=== PATIENT | female | born 1950 | race Caucasian/White ===

== ENCOUNTER 2019-01-26 05:47 | Inpatient (IN) | payer MEDICARE, BC ==
--- NOTE | 2019-01-26 06:35 | EDM.PDOC ---
ED HPI GENERAL MEDICAL PROBLEM - General Chief Complaint: General Stated Complaint: weakness, assisted fall Time Seen by Provider: 01/26/19 06:33 Source of Information: Reports: Patient, EMS Notes Reviewed, Family, RN, RN Notes Reviewed History Limitations: Reports: No Limitations - History of Present Illness INITIAL COMMENTS - FREE TEXT/NARRATIVE: Patient is brought to the emergency room at [facility] via EMS for increasing weakness, fatigue, fall at home, and right leg numbness. According to the patient's family, she was being assisted to the restroom when she fell landing on her right leg. The patient's was unable to get the patient off the floor, therefore EMS was called. The patient complains of right foot and ankle pain. The patient denies hitting her head. The patient denies any loss of consciousness. The patient denies any other pain. The patient does have chronic abdominal pain secondary to ascites. The patient has a long-standing history of end-stage endometrial cancer. The patient does have metastasized to the liver. The patient currently has a MANUEL drain in place for malignant ascites. The patient was originally diagnosed with endometrial cancer October 2013 at which time she underwent a abdominal hysterectomy with a BSO. She was found to have grade 2 endometrial adenocarcinoma with myometrium involvement. April 2016 the patient was found to have a significant DVT including common femoral vein and popliteal vein and parent Tibial vein. The patient was started on Pradaxa. On April 27, [address] the patient [address] a CT scan of the abdomen and pelvis which showed extensive peritoneal implants. The patient had 6 cycles of chemotherapy of carboplatin and Taxol. the patient was started on Megace and Tamoxifen. May 2017, the patient was found to have significant progressive disease and CT and PET. HRT was stopped and patient was restarted on carboplatin, Taxol, and Avastin. She seemed to have some resolution of her lesions at this point. Repeat CT and PET again showed progression and patient was then started on Doxil. She was enrolled in a clinical TAPUR trial 10/2018, but due to progression of disease, patient was withdrawn. 01/08/2019 patient was then started on Topotecan. states the MANUEL drained has increased to about 600-1000 ml per day. He states the drainage seems to be "more bloody looking." Patient recently has a blood transfusion last week for a hemoglobin of 6.6. Repeat HgB the next day was 7.3. Patient has a dry cough. Mild SOB. No chest pain. No focal neurological deficits. Abdominal pain is generalized with some focus around the MANUEL insertion site. Onset: Today Onset Date: 01/26/19 Right Feet Pain Score (Numeric/FACES): 9 - Related Data Allergies Allergy/AdvReac Type Severity Reaction Status Date / Time Sulfa (Sulfonamide Allergy Facial Verified 01/26/19 05:53 Antibiotics) Swelling Home Meds: Home Meds Dabigatran [Pradaxa] 150 mg PO BID 01/26/19 [History] Levothyroxine [Synthroid] 100 mcg PO ACBREAKFAST 01/26/19 [History] Lisinopril 0.5 tab PO DAILY 01/26/19 [History] Omeprazole 1 tab PO DAILY 01/26/19 [History] Ondansetron [Zofran ODT] 4 mg PO Q4H PRN 01/26/19 [History] Sennosides/Docusate Sodium [Senna Plus Tablet] 2 tab PO BID 01/26/19 [History] Past Medical History Cardiovascular History: Reports: High Cholesterol Gastrointestinal History: Reports: Chronic Constipation, GERD Oncologic (Cancer) History: Reports: Liver, Uterine Social & Family History - Tobacco Use Smoking Status *Q: Never Smoker ED ROS GENERAL - Review of Systems Review Of Systems: See Below Constitutional: Reports: Weakness, Fatigue. Denies: Fever, Chills Respiratory: Reports: Shortness of Breath, Cough Cardiovascular: Denies: Chest Pain, Palpitations GI/Abdominal: Reports: Abdominal Pain (chronic 2/2 mets to liver) Musculoskeletal: Reports: Foot Pain (right 2/2 fall) Skin: Reports: No Symptoms Neurological: Reports: No Symptoms ED EXAM, GENERAL - Physical Exam Exam: See Below Exam Limited By: No Limitations General Appearance: Alert, No Apparent Distress Respiratory/Chest: No Respiratory Distress, Lungs Clear, Normal Breath Sounds Cardiovascular: Normal Peripheral Pulses, Tachycardia Peripheral Pulses: 1+: Radial (L), Radial (R) GI/Abdominal: Soft, Tender (generalized), Abnormal Bowel Sounds (hypoactive) Extremities: Other (medial right foot pain; dorsum pain; chronically swollen; ROM intact; no obvious bone deformity) Neurological: Alert, Oriented Skin Exam: Warm, Dry, Intact, Normal Color Course - Vital Signs Last Recorded V/S: Last Vital Signs Temp 37.9 C 01/26/19 06:00 Pulse 109 H 01/26/19 06:00 Resp 26 H 01/26/19 06:00 BP 97/51 L 01/26/19 06:00 Pulse Ox 87 L 01/26/19 06:00 - Orders/Labs/Meds Labs: Laboratory Tests 01/26/19 01/26/19 01/26/19 Range/Units 07:30 07:30 07:30 WBC 40.7 H* (4.0-10.0) x10^3/uL RBC 2.52 L (4.00-5.50) x10^6/uL Hgb 7.5 L (12.0-16.0) g/dL Hct 24.9 L (33.0-47.0) % MCV 98.8 H D (78.0-93.0) fL MCH 29.8 (26.0-32.0) pg MCHC 30.1 L (32.0-36.0) g/dL RDW Coeff of Hiral 17.9 H (10.0-15.0) % Plt Count 311 D (130-400) x10^3/uL Add Manual Diff Yes Neutrophils % (Manual) 87 H (50-80) % Band Neutrophils % 4 (0-6) % Lymphocytes % (Manual) 8 L (25-50) % Monocytes % (Manual) 1 L (2-11) % Platelet Estimate Adequate Polychromasia 1+ slight H Hypochromasia 2+ moderate H Sodium 136 (136-145) mmol/L Potassium 4.8 (3.5-5.1) mmol/L Chloride 102 (98-107) mmol/L Carbon Dioxide 21 (21-32) mmol/L Anion Gap 17.8 (10-20) mmol/L BUN 33 H (7-18) mg/dL Creatinine 2.4 H (0.55-1.02) mg/dL Est Cr Clr Drug Dosing TNP Estimated GFR (MDRD) 20 Glucose 106 (74-106) mg/dL Calcium 8.3 L (8.5-10.1) mg/dL Magnesium 1.6 L (1.8-2.4) mg/dL Meds: Medications Discontinued Medications Generic Name Dose Route Start Last Admin Trade Name Freq PRN Reason Stop Dose Admin Sodium Chloride 1,000 mls @ 999 mls/hr 01/26/19 06:51 01/26/19 07:28 Normal Saline IV 01/26/19 07:51 999 mls/hr ONETIME ONE Administration Morphine Sulfate 2 mg 01/26/19 07:38 01/26/19 07:46 Morphine IVPUSH 01/26/19 07:39 2 mg ONETIME ONE Administration - Radiology Interpretation Free Text/Narrative:: CXR: No acute process Right Foot: Negative plain film exam See scanned reports in EMR for details Departure - Departure Time of Disposition: 09:16 Disposition: Admitted As Inpatient 64 Condition: Poor Clinical Impression: Endometrial cancer, Dehydration, Acute kidney injury (nontraumatic) - Discharge Information *PRESCRIPTION DRUG MONITORING PROGRAM REVIEWED*: Not Applicable *COPY OF PRESCRIPTION DRUG MONITORING REPORT IN PATIENT JAMES: Not Applicable ED Communication - ED Communication Date/Time Date: 01/26/19 Time Called: 07:50 - Discussed Case With (1) Discussed Case With (1): Outpatient Provider (Dr. Salmon, [facility] [place]) - Conversation Summary Outpatient Provider Agreed to Follow-up on this Patient: Yes Patient Aware of Amendments fo Care Plan: Yes Patient's POA/Guardian Aware of Amendments to Care Plan: Yes - Problem List Review Problem List Initiated/Reviewed/Updated: Yes - Assessment/Plan Assessment:: End stage endometrial cancer Dehydration Acute kidney injury 2/2 dehydration Weakness Plan: Case discussed with Dr. Salmon, [facility] [place]. Options discussed with family. They would like to stay locally if possible. Dr. Liliya Saavedra will accept patient and admit.
[2019-01-26] MEDS ORDERED: Sodium Chloride 0.9% 1,000 ML IV ONE (06:51)
[2019-01-26] MEDS ORDERED: Morphine 2 MG/ML Syringe IVPUSH ONE (07:38)
[2019-01-26 07:50] LABS: CHLORIDE,CL 102 mmol/L (98-107); SODIUM,NA 136 mmol/L (136-145)
[2019-01-26 07:51] LABS: ANION GAP 17.8 mmol/L (10-20)
--- NOTE | 2019-01-26 08:49 | CR ---
[id number] RAD/RAD Chest Portable EXAM: PORTABLE CHEST RADIOGRAPH. INDICATION: COUGH COMPARISON: NO PREVIOUS SIMILAR EXAM IS AVAILABLE FOR COMPARISON. FINDINGS: The lungs are clear. A chest port is seen. The cardiomediastinal contour is slightly prominent. IMPRESSION: NO ACUTE PROCESS. Alex Fields MD 01/26/19 0846 Thank you for allowing us to participate in the care of your patient.
--- NOTE | 2019-01-26 08:50 | CR ---
[id number] RAD/RAD Foot Right 3V Min EXAM: RAD Foot Right 3V Min CLINICAL DATA: TRAUMA COMPARISON: NO PREVIOUS SIMILAR EXAM IS AVAILABLE. FINDINGS: No fracture or dislocation is seen. There is no radiopaque foreign body in the soft tissues. There is no air in the soft tissues. There is no cortical thickening or periosteal reaction either. IMPRESSION: NEGATIVE PLAIN FILM EXAM. Alex Fields MD 01/26/19 0847 Thank you for allowing us to participate in the care of your patient.
[2019-01-26] MEDS ORDERED: cefTRIAXone 1 GM Vial IVPUSH ONE ×2 (09:33→09:46)
[2019-01-26] MEDS: Sodium Chloride 0.9% 1,000 ML IV SCH ×2 (09:44→15:29)
[2019-01-26] MEDS ORDERED: Ondansetron 4 MG/2 ML SDV IVPUSH PRN (09:51)
[2019-01-26] MEDS ORDERED: Ondansetron 4 MG Tab.DIS PO PRN (11:08)
[2019-01-26] MEDS ORDERED: Levothyroxine 100 MCG Tab PO SCH (11:09)
[2019-01-26] MEDS ORDERED: Acetaminophen 325 MG Tab PO PRN (11:09)
[2019-01-26] MEDS: Omeprazole 20 MG Cap.CR PO SCH (11:38)
[2019-01-26] MEDS: Magnesium Oxide 400 MG Tab PO SCH ×2 (11:39→19:38)
[2019-01-26] MEDS: DABIGATRAN 150 MG PO SCH ×2 (11:47→19:41)
--- NOTE | 2019-01-26 13:10 | CR ---
[id number] RAD/RAD Ankle Right 2V EXAM: RAD Ankle Right 2V CLINICAL DATA: RIGHT ANKLE PAIN COMPARISON: NO PREVIOUS SIMILAR EXAM IS AVAILABLE. FINDINGS: Soft tissue swelling is seen. No fracture or dislocation is seen. There is no radiopaque foreign body in the soft tissues. There is no air in the soft tissues. There is no cortical thickening or periosteal reaction either. IMPRESSION: NEGATIVE PLAIN FILM EXAM. Alex Fields MD 01/26/19 0591 Thank you for allowing us to participate in the care of your patient.
[2019-01-26] MEDS ORDERED: Levothyroxine 100 MCG Vial IVPUSH SCH (14:30)
[2019-01-26] MEDS: Levothyroxine 100 MCG Vial IVPUSH SCH (15:28)
[2019-01-26] MEDS ORDERED: Benzonatate 100 MG Cap PO SCH ×2 (18:00→20:00)
--- NOTE | 2019-01-26 18:15 | HP ---
CHIEF COMPLAINT: Weakness and fall. HISTORY OF PRESENT ILLNESS: This is a 68-year-old female who is at home with her . Daughter is visiting from [place]. She has stage IV endometrial cancer, currently trying a new chemotherapy drug the end of December, but was not able to receive it on the due to anemia. She actually received 1 unit of blood then, but it did not seem to improve her energy levels. She did sort of twist her ankle when she fell. Preliminary x-rays of the foot did not show any fracture. Otherwise, she has been coughing more, does feel short of breath. She has malignant ascites and did have a PleurX catheter placed on the 01/02/2019. She has not had a fever, chills, or abdominal pain, but has felt nauseated. They have been draining fluid about 700 yesterday. It has been bloody, Saturday. Before that, they only got like a 150, then a 100, so they waited a week before draining again. She has not had any burning with urination, but has had little urine output. She has history of DVT and is on Pradaxa. Otherwise her past medical history is as followed for her cancer, originally diagnosed in 2013 and treated with surgery, but then had a relapse in 2016. It was found at the time of her DVT. She has been on several rounds of treatment including immunotherapy, but has had progression of her disease. Her last drug was topotecan. They believe she only got Zofran with it. No stimulating agents. She did have a white count of only 2.2 on 01/16/2019. PAST MEDICAL HISTORY: Her other past medical history includes the DVT with pulmonary embolism on Pradaxa, anemia due to cancer and chemotherapy, hyperlipidemia, essential hypertension, hypoalbuminemia with protein-calorie malnutrition, malignant ascites, fatigue related to malignancy, neuropathy due to chemotherapy, obesity, obstructive sleep apnea. PAST SURGICAL HISTORY: Includes the hysterectomy and BSO. Otherwise, she has had tonsillectomy, teeth extraction, IR, Port-A-Cath insertion, PleurX catheter insertion, colonoscopies, cataracts. FAMILY HISTORY: The patient's father had . She had been caring for him during her cancer diagnosis. He had hypertension and a history of [place]. SOCIAL HISTORY: Otherwise, she is . 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 She is from the [place], but moved into [place] a couple of years ago. She has 2 children. REVIEW OF SYSTEMS: General: She has felt weak and fatigued. Her weight has decreased from around 283 pounds in September, about 14 pounds to 269 pounds before this last round of chemo. HEENT: She has not had any sore throat, otherwise. Cardiac: No chest pain. No palpitations. Respiratory: She has had the cough, has not really been bringing up much. Abdomen: She has been nauseated, otherwise. Does get constipated from chemo. Musculoskeletal: Only the new ankle pain from the fall. Otherwise, all systems reviewed and found to be negative unless otherwise stated. PHYSICAL EXAMINATION: Vital Signs: Today, at the time of admission, her temperature 99.2, pulse 98, blood pressure 110/50, respiratory rate 18, O2 of 92% on room air. General: She was in no acute distress. She was resting comfortably in bed. She did get some morphine which she found quite helpful for pain, but it made her nauseated. Heart: Regular rate and rhythm. S1, S2 without murmur. She has a port over her right chest. Abdomen: Distended. There appeared to be some firmness in the mid epigastric area, but it was nontender. She has notable ascites. She has a PleurX catheter in place, otherwise. Lungs: Clear to auscultation bilaterally without crackles or wheezes. Extremities: Warm and dry. She does have tenderness over the medial ankle. No pitting edema, but both extremities are large. Homans sign negative. Mental Status: She is alert. She is orientated x3. She is speaking appropriately. Skin: Her skin tone was mildly pale. DIAGNOSTIC DATA: Otherwise, her chest x-ray did not show any infiltrates. Her foot x-ray negative for fracture. Ankle x-ray, official report not returned, but negative for fracture. She particularly did have pain with inversion, but the bump testing negative. Otherwise, her lab work did show her white count up to 40.7 with 87% neutrophils, hemoglobin 7.5, previously was 6.6, and got 1 unit, platelets up to 311, previously was below 100. Sodium 136, potassium 4.8, chloride 102, bicarb 21, BUN 33, creatinine 2.4, previously 1.0, calcium 8.3, glucose 106, magnesium 1.6, GFR 20. ASSESSMENT: 1. Acute renal failure, probably due to volume depletion, ascites, and potentially progression of cancer. At this point, we will place a Russo for strict Is and Os. She only had 100 mL of dark urine out on Russo placement and we will give her IV fluids. We will also check a UA. 2. Stage IV metastatic endometrial cancer, previously had some metastasis to the liver with malignant ascites, now with PleurX catheter in place. The patient is pretty much at a point where she is considering hospice, but would like to see how she does over the next few days with acute treatments. 3. Right ankle pain. No obvious fracture. We will do Navjot wraps. We will get her seen by Physical Therapy. 4. Anemia due to chemotherapy and malignancy. At this point, anticipate her hemoglobin will drop further due to hemodilution. We will repeat in the morning. She is also having bloody ascites which could be where some of the loss is coming from. Certainly, we may have to consider even stopping Pradaxa. 5. History of deep venous thrombosis and pulmonary embolism in the setting of malignancy. She is currently on Pradaxa. 6. Essential hypertension. Blood pressure is actually low. We will hold lisinopril due to renal failure. 7. Leukocytosis. Concern would be for some underlying infection, especially with some mild tachycardia, although her pulse should be noted runs normally 90 to 105 in the clinic. At this point, I will go ahead and empirically give her some Rocephin, especially due to her ascites, considerations for small bowel perforation, or even secondary bacterial peritonitis are considerations. Currently, she has no abdominal pain. She is not confused. We will go ahead and send some of her fluid for at least a Gram stain and cell count and culture. We will also get her a UA. We will cover her with 2 g of Rocephin daily as we do not have cefoxitin at our hospital. 8. [id number] malnutrition. We will get her albumin tomorrow. We will let her eat as able. Consider adding protein. PLAN: At this point, the patient is admitted to Acute Cares for IV antibiotics, IV fluids as discussed with family. We will further decide if transfusion is warranted tomorrow. If her condition worsens, she will be placed on full out comfort cares. If she improves, the goal would be to go home with hospice. I have updated her oncologist as well and will speak with him when he is available. Code level 5, admitted with advancing malignancy, renal failure, and possible infection. MKA: 01/26/2019 13:00:59 MODL: 01/26/2019 17:27:31 /[id number]
[2019-01-26] MEDS: Sodium Chloride 0.9% 10 ML Syringe IV PRN (19:38)
[2019-01-26] MEDS: HYDROmorphone 1 MG/ML Syringe IVPUSH PRN (20:38)
[2019-01-27] MEDS: Benzonatate 100 MG Cap PO SCH ×4 (00:43→19:41)
[2019-01-27] MEDS: Sodium Chloride 0.9% 10 ML Syringe IV PRN ×6 (04:36→21:53)
[2019-01-27] MEDS: HYDROmorphone 1 MG/ML Syringe IVPUSH PRN ×2 (04:36→21:53)
[2019-01-27] MEDS: Omeprazole 20 MG Cap.CR PO SCH (06:19)
[2019-01-27 06:59] LABS: ANION GAP 14.6 mmol/L (10-20); CHLORIDE,CL 105 mmol/L (98-107); SODIUM,NA 138 mmol/L (136-145)
[2019-01-27] MEDS: cefTRIAXone 2 GM Vial IVPUSH SCH (08:11)
[2019-01-27] MEDS: Magnesium Oxide 400 MG Tab PO SCH ×2 (08:12→19:41)
[2019-01-27] MEDS ORDERED: Furosemide 20 MG/2 ML VIAL IV ONE (09:06)
--- NOTE | 2019-01-27 10:40 | CR ---
[id number] RAD/RAD Chest PA or AP 1V EXAM: RAD Chest PA or AP 1V INDICATION: SHORTNESS OF BREATH. COMPARISON: [facility] 2018. DISCUSSION: Stable position of right chest wall port catheter. Cardiomediastinal silhouette is normal in size and contour. No infiltrate, effusion, pneumothorax, or edema. IMPRESSION: No acute findings or significant change from the prior examination. Prasad Chappell MD 01/27/19 1039 Thank you for allowing us to participate in the care of your patient.
--- NOTE | 2019-01-27 12:08 | PN ---
Progress Note for BRIDGET SALVADOR Date: 01/27/2019 Room #: VM.205 SUBJECTIVE: This is hospital day #2 on a 68-year-old with stage IV endometrial cancer and peritoneal metastasis with ascites, who got weak at home, was found to be very dehydrated, given some IV fluids. She states she is actually feeling better today, but is coughing more and is more short of breath. Cough is now more productive. She did not have any fever on admission, but did have some low- grade 100.3 fever from yesterday. She had 40,000 white count, but no definite source of infection was found. Concern was for ascites infections, so she was placed on 2 g of Rocephin. She has now been afebrile. She is not having any stomach pain. She is not having any nausea. Urine output has been poor despite her Russo. She denies pain, but did receive 2 doses of Dilaudid overnight. She said she used them more to help her relax and sleep and it did allow her to get to sleep. She also refused her Pradaxa last night after we had discussion about it worsening her anemia and bleeding as her ascites fluid is bloody. She did admit she was not taking her levothyroxine for about 2 weeks and her TSH was quite elevated. Daughter and are present for the discussion today. Daughter is going to be traveling home to [place]. OBJECTIVE: VITAL SIGNS: This morning, her temperature 98.4, pulse 97, blood pressure 98/54, respiratory rate 18, and O2 of 93% on 4 L. GENERAL: She is in no acute distress. She is quite pale. HEART: Regular rate and rhythm without murmur appreciated. LUNGS: Lung sounds are decreased in both bases but no crackles appreciated. ABDOMEN: Does have the PleurX catheter in place. There was 300 drained out of this yesterday. There is no tenderness to palpation. Does have some firmness in the mid epigastric area, possibly a little mass that was noted yesterday. No changes. EXTREMITIES: With at least 1+ edema, it is nonpitting. MENTAL STATUS: Alert and orientated x3. IMAGING DATA: Chest x-ray from today was reviewed. No major changes. No infiltrate noted. LABORATORY DATA: Shows white count down to 30.1, hemoglobin 6.3, platelets 275. Sodium 138, potassium 4.6, chloride 105, bicarb 23, BUN 37, creatinine 2.8 up from 2.4, calcium 7.6, AST 48, ALT 15, alkaline phosphatase 171, bilirubin 0.4, albumin 1.8. TSH again 45.8 yesterday. Leukocyte esterase negative yesterday, but 5 to 10 wbc's, so urine was sent for culture. She also had nothing noted on the Gram stain for organisms. Did have greater than 100 wbc's. Cell count is pending. Culture is pending. ASSESSMENT AND PLAN: 1. Acute on chronic anemia due to malignancy. Discussed the risks and benefits of blood transfusion with the patient and she elects to proceed. We will give her 2 units of packed red blood cells today and also provide her with some Lasix due to fluid retention and poor urine output. 2. Leukocytosis. There was some concern for sepsis, however, she did not meet criteria with fever, but was tachycardic, although her baseline heart rate is always above 90. At this point, she will continue on 2 g of Rocephin. Urine culture is pending. Repeat chest x-ray did not show any pneumonia. 3. Cough, probably multiple etiologies given diaphragmatic irritation from her ascites. We will continue with Tesmarcelino Urbina. 4. Stage IV endometrial cancer, metastatic. At this point, we will continue with blood and infection treatments to try to improve her short-term strength and mobility in hopes to return home with hospice. The patient understands if her condition worsens, she will likely stay in the hospital under full comfort measures. 5. Right ankle pain. This is doing better today. No fracture on x-ray. 6. History of deep vein thrombosis and pulmonary embolism. Decision has been made after discussing the risks and benefits to stop Pradaxa. The patient is focusing on short-term comfort and quality of life currently. She is aware that she will likely get another deep vein thrombosis and may lead to another pulmonary embolism over the next week or so. 7. Essential hypertension. Blood pressures have been low. We are still holding lisinopril. 8. Moderate to severe malnutrition. Albumin is down to 1.8. We talked about adding protein powder, however, that is more of a long-term thing. We talked about even IV albumin. Her daughter actually works in dialysis and understands that this is not a fix either. For now, we will just encourage diet and she has been eating. PLAN: At this point, the patient will continue on acute cares. We will transfuse 2 units of packed red blood cells today. We will try some Lasix. We will continue to monitor in's and out's closely. We have kept the Russo in place to do that. We will add some lorazepam to try to help her sleep and rest at night instead of using the pain medication. Otherwise, family does seem comfortable with plan of care. We will try to get her up and into the chair later today after the blood, perhaps PT can help with this. Otherwise, tomorrow will likely be when she gets a PT assessment unless her condition worsens. MKA: 01/27/2019 10:18:34 MODL: 01/27/2019 10:38:35 /[id number]
[2019-01-27] MEDS: Levothyroxine 100 MCG Vial IVPUSH SCH (12:34)
[2019-01-27] MEDS: LORazepam 0.5 MG Tab PO PRN (19:41)
[2019-01-28] MEDS: guaiFENesin/Dextromethorphan 100-10 MG/5 ML Soln 10 ML Cup PO PRN ×3 (03:17→20:48)
[2019-01-28] MEDS: HYDROmorphone 1 MG/ML Syringe IVPUSH PRN ×2 (04:00→21:59)
[2019-01-28] MEDS: Sodium Chloride 0.9% 10 ML Syringe IV PRN ×4 (04:00→21:59)
[2019-01-28] MEDS: Omeprazole 20 MG Cap.CR PO SCH (06:20)
[2019-01-28 07:20] LABS: ANION GAP 13.8 mmol/L (10-20)
[2019-01-28] MEDS: cefTRIAXone 2 GM Vial IVPUSH SCH (08:25)
[2019-01-28] MEDS: Magnesium Oxide 400 MG Tab PO SCH ×2 (08:26→20:45)
[2019-01-28] MEDS: Benzonatate 100 MG Cap PO SCH ×3 (08:26→20:47)
[2019-01-28] MEDS: Sodium Chloride 0.9% 10 ML Syringe IV SCH ×2 (08:27→20:30)
[2019-01-28] MEDS: Sodium Chloride 0.65% Nasal Spray 45 ML Bottle NAS SCH ×4 (09:17→20:59)
[2019-01-28] MEDS: Levothyroxine 100 MCG Vial IVPUSH SCH (09:17)
[2019-01-28] MEDS ORDERED: Furosemide 40 MG/4 ML VIAL IV ONE (13:28)
--- NOTE | 2019-01-28 16:53 | PN ---
Progress Note for BRIDGET SALVADOR Date: 01/28/2019 Room #: VM.205 SUBJECTIVE: This is hospital day #3 on a 68-year-old admitted with leukocytosis, weakness, dehydration, and anemia. The patient received 2 units of packed red blood cells yesterday with some Lasix between them. She states she is feeling better like she has some more energy, but she is still short of breath. She is still coughing, feels like she might have some drainage and phlegm in her throat. She has been afebrile. She denies having pain anywhere. Urine output has still been poor. She is positive 2.5 L fluid balance. She had another 300 out of her ascites drained yesterday. She is eating up to 75% of some meals, 100% of snacks, but still has not had a bowel movement yet. She is passing gas. Otherwise, the son was able to come up from [place]. OBJECTIVE: Vital Signs: Her temperature is 98.8, pulse 88, blood pressure 106/60, respiratory rate 16, O2 of 94% on 3 L. General: She is in no acute distress. Heart: Regular rate and rhythm without murmur. Lungs: Sound clear to auscultation bilaterally without crackles or wheezes. Abdomen: Mild distention with ascites. She has the catheter in place in the right lower quadrant. There is some masslike material in the lower abdomen, which is unchanged. Mental Status: She is alert and orientated x3. Extremities: She is having less tenderness in that right foot and ankle. She still has 1+ edema down there. It should be noted also she sleeping better. She did try some Ativan last evening. LABORATORY DATA: Lab work did show her white count up slightly to 34.4, hemoglobin up to 9.1, platelets 250. Sodium 136, potassium 4.8, chloride 104, bicarb 23, BUN 43, creatinine 2.8, glucose 82, calcium 7.9, albumin 1.8 yesterday. Urine culture final no growth. Abdominal fluid also no growth. ASSESSMENT AND PLAN: 1. Leukocytosis with no definite source of infection. Given her white count increased, although she did get fluid, she had some low-grade fever on admission. I will continue the Rocephin 1 more day to complete a full 3 day course. 2. Chronic anemia due to malignancy and chemotherapy. This has improved with transfusion. We have stopped the Pradaxa to prevent ongoing bleeding. 3. Metastatic endometrial cancer with peritoneal ascites. We will continue drains daily. The patient is very interested in hospice and comfort cares, but we will see how she does getting up with therapies and see if she has ability to do some swing bed. Otherwise, considerations can be made for swing bed end of life cares if her condition worsens. I did hear back from her oncologist and he was in agreement to this. 4. Chronic cough, probably from some diaphragmatic irritation. We have already tried Tessalon and guaifenesin. We can try some narcotic cough syrups as well, but she is already constipated, so at this point, we will try some nasal saline rinses. 5. DVT and PE in the past. She is off anticoagulation, and she is more comfort care status, so we have not started her on any Lovenox also with the anemia and likely bleeding into her ascites. She understands there is risk of recurrent DVT. 6. Essential hypertension. Blood pressures have been low. Lisinopril was stopped due to renal failure. We will continue to monitor. 7. Fhizgirw-zt-qtfjgu malnutrition. PLAN: At this point, the patient will continue acute cares. I am going to re- dose her with some IV Lasix 40 mg today. Perhaps she needs a higher dose due to her renal insufficiency. We will continue with the Russo for strict ins and outs. We will continue with the p.r.n. lorazepam. We will get her up in the chair and working with PT and see how that goes. Anticipate that she may be transitioned over to swing bed for either therapies or even end of life care. The patient does not feel like she is going to be able to return to her home setting at this point. MKA: 01/28/2019 16:15:16 MODL: 01/28/2019 16:44:21 /[id number]
[2019-01-28] MEDS ORDERED: Bisacodyl 10 MG Supp RECTAL ONE ×2 (18:24→20:45)
[2019-01-29] MEDS: Sodium Chloride 0.65% Nasal Spray 45 ML Bottle NAS SCH ×7 (02:15→23:59)
[2019-01-29] MEDS: LORazepam 0.5 MG Tab PO PRN (02:41)
[2019-01-29] MEDS: guaiFENesin/Dextromethorphan 100-10 MG/5 ML Soln 10 ML Cup PO PRN ×3 (02:41→19:45)
[2019-01-29] MEDS: Levothyroxine 125 MCG Tab PO SCH (06:05)
[2019-01-29] MEDS: Omeprazole 20 MG Cap.CR PO SCH (06:05)
[2019-01-29] MEDS: Sodium Chloride 0.9% 10 ML Syringe IV PRN ×2 (06:12→16:20)
[2019-01-29 06:39] LABS: ANION GAP 14.8 mmol/L (10-20)
[2019-01-29] MEDS: Sodium Chloride 0.9% 10 ML Syringe IV SCH ×2 (07:49→19:45)
[2019-01-29] MEDS: cefTRIAXone 2 GM Vial IVPUSH SCH (07:49)
[2019-01-29] MEDS: Benzonatate 100 MG Cap PO SCH ×3 (07:50→19:45)
[2019-01-29] MEDS: Magnesium Oxide 400 MG Tab PO SCH ×2 (07:50→19:45)
[2019-01-29] MEDS: Furosemide 40 MG/4 ML VIAL IV SCH ×2 (11:49→16:19)
[2019-01-29] MEDS: Ciprofloxacin in D5W 200 MG in Premix Bag 1 BAG IV SCH ×2 (16:38)
--- NOTE | 2019-01-29 17:30 | PN ---
Progress Note for BRIDGET SALVADOR Date: 01/29/2019 Room #: VM.205 SUBJECTIVE: This is hospital day #4 on a 68-year-old admitted with leukocytosis and concern for SBP. She did have greater than 2000 nucleated cells, but her culture was negative. Her white blood cell count continues to increase up to 39,000 after initial of 40,000, but she has been afebrile. She denies abdominal pain. She continues to have some shortness of breath and coughing. Her Lasix was increased yesterday and she had good urine output of 1.6 mL. She is down now 700 yesterday but is up 2.5 L previously. She is eating 50% to 100% of her meals. She had less drainage out of her catheter today under 30 mL. She did take a dose of Dilaudid around 10 p.m. but that was more to help with sleep. She is on Tessalon Perles and guaifenesin cough syrup. She has been on IV Rocephin now day #4. OBJECTIVELY: Vital Signs: Her temperature is 98.5, pulse 95, blood pressure 124/66, respiratory rate 18, O2 95% on 4 L. General: She is in no acute distress. Heart: Regular rate and rhythm. Respiratory: Lung sounds decreased in the bases but no crackles or wheezes. Abdomen: Distended. Positive bowel sounds, but nontender. Catheter is in place. Her drainage has been bloody. Mental Status: She is alert. She is orientated x3. Skin: She still has some bruising noted especially over the right ankle, but no sores. There is some 1+ edema at the ankles, otherwise. LABORATORY DATA: Lab work again, white count 39.6 with 86% neutrophils, hemoglobin 9.4, platelets 266. Sodium 139, potassium 4.8, chloride 105, bicarb 24, BUN 45, creatinine 2.3, glucose 89, calcium 8.1. ASSESSMENT: 1. Acute renal failure due to some dehydration, anemia and ascites. This is improving. We will continue with diuresis as that is helping her symptomatic. Repeat lab work tomorrow. 2. Leukocytosis. Only source of infection is possibly SBP. We will switch her over to the IV Cipro today to see how she goes. Plan to treat at the most 7 days. 3. Chronic anemia. She is status post transfusion. Blood counts are stable. 4. Metastatic endometrial cancer with peritoneal ascites. We will continue daily drains, although may not require them as many as she is lower now with the diuresis. 5. Severe deconditioning. We will get her up trying to work with therapies as she has improved slightly. Try to rehab her to the point where she could potentially go home with hospice, but she is not sure, so we will get social workers involved, maybe she will even need a shelter stay or if she becomes acutely worse and is actively passing, we would keep her here for end of life cares on swing bed. 6. Chronic cough. Continue current treatments. 7. History of DVT and PE. She is off anticoagulation due to being on comfort care status and bleeding. We will continue with the same. 8. Essential hypertension. She is off her lisinopril. Blood pressures are controlled. 9. Affkqxop-fw-mytgan malnutrition. PLAN: At this point, the patient will continue acute cares. We will do Lasix 40 mg IV b.i.d. We will discontinue Rocephin and try some IV Cipro 200 b.i.d. We will continue with the p.r.n. lorazepam and Dilaudid. We will get her up and working more with therapies today. She was only able to do in bed cares, has not been out of bed since Saturday, so is pretty deconditioned. Anticipate discharge over to swing bed for potential therapies tomorrow. MKA: 01/29/2019 16:47:11 MODL: 01/29/2019 17:22:33 /[id number]
[2019-01-30] MEDS: Sodium Chloride 0.65% Nasal Spray 45 ML Bottle NAS SCH ×3 (04:32→12:16)
[2019-01-30] MEDS: LORazepam 0.5 MG Tab PO PRN (04:32)
[2019-01-30] MEDS: guaiFENesin/Dextromethorphan 100-10 MG/5 ML Soln 10 ML Cup PO PRN ×2 (04:33→07:47)
[2019-01-30] MEDS: Omeprazole 20 MG Cap.CR PO SCH (06:14)
[2019-01-30] MEDS: Sodium Chloride 0.9% 10 ML Syringe IV PRN (06:15)
[2019-01-30] MEDS: Levothyroxine 125 MCG Tab PO SCH (06:15)
[2019-01-30 07:23] LABS: ANION GAP 15.2 mmol/L (10-20)
[2019-01-30] MEDS: Furosemide 40 MG/4 ML VIAL IV SCH (07:47)
[2019-01-30] MEDS: Ciprofloxacin in D5W 200 MG in Premix Bag 1 BAG IV SCH ×2 (07:47)
[2019-01-30] MEDS: Magnesium Oxide 400 MG Tab PO SCH (07:48)
[2019-01-30] MEDS: Benzonatate 100 MG Cap PO SCH ×2 (07:48→12:14)
[2019-01-30] MEDS: Sodium Chloride 0.9% 10 ML Syringe IV SCH (07:48)
[2019-01-30] MEDS ORDERED: Magnesium Sulfate/Water 4 GM in Premix Bag 1 BAG IV ONE (09:37)
--- NOTE | 2019-01-30 15:30 | DISCH ---
PRIMARY DISCHARGE DIAGNOSIS: Acute renal failure secondary to dehydration and anemia in the setting of metastatic endometrial cancer and recent chemo. SECONDARY DISCHARGE DIAGNOSES: 1. Leukocytosis, low-grade fever, concern for spontaneous bacterial peritonitis, culture negative, but still significantly elevated white count. Plan to treat with 7 days of antibiotics. 2. Acute on chronic anemia status post 2 units of packed red blood cells. 3. Anemia is due to malignancy and chemotherapy. Hemoglobin 8.7, stable on discharge. 4. Severe malnutrition. 5. Metastatic endometrial cancer with peritoneal ascites with PleurX catheter drain in place. 6. Severe deconditioning, working with therapies. 7. Chronic cough with some improvement at times with Tessalon Perles, cough medicine, and saline rinses. 8. History of deep venous thrombosis and pulmonary embolism, but off Pradaxa due to ongoing blood loss due to cancer. The patient is at high risk for deep venous thrombosis and she understands this, but is focusing more on comfort measures at this point, but for her comfort, also does mean trying to get up and out of bed and into the chair. 9. Essential hypertension, off lisinopril, doing well. REASON FOR ADMISSION: On the date of admission, this 68-year-old female was brought into the emergency room by ambulance after an assisted fall at home. There was some right foot injury. X-rays were negative for fracture, but she did have some bruising. She was just very weak, found to have a white count of 40,000. Chest x-ray did not show pneumonia. UA had some sign of infection, but her culture was negative and she was not having any bladder symptoms. She was actually having low urine output. Her creatinine which had previously been around 1 had went up to 2.4. She was given IV fluids. Creatinine worsened further to 2.8 and hemoglobin which was 7.5 on admission was down to 6.3. Probably due to some hemodilution, she had also received 1 unit previously as an outpatient. She received 2 units of packed red blood cells. Her kidney function started to improve down to a creatinine of 2.2 today and she was being more short of breath. Therefore, I had already stopped IV fluids. I had started her on some IV Lasix and urine output picked up. In fact, it was 2 L in the last 24 hours, so she basically no longer has a positive fluid balance. She is breathing a little bit better. She at no time was in any pain, but did elect to try some Dilaudid to help her rest better at night. Last dose was on the . It may also potentially help her cough, but she really did not use it for that yet and she did use some Ativan during the night including last evening to help her rest. PHYSICAL EXAMINATION: Vital Signs: Otherwise, discharge vitals included temperature 98.8, pulse 95, blood pressure 105/65. She has not been lightheaded or dizzy. Respiratory rate 18, O2 of 95% on 3 L. She had previously been up to 4 L. General: She is in no acute distress. Heart: Regular rate and rhythm. S1, S2 without murmur. Lungs: Lung sounds are decreased, but no crackles or wheezes. Abdomen: Distended, but positive bowel sounds and nontender. Extremities: Warm and dry. She has a bruising over the right foot, still the 1+ edema in her extremities. She has had the MOUNIKA stockings and Navjot wraps ordered, but has not been tolerating it all that well. DISCHARGE PLANS AND INSTRUCTIONS: She is going over to swing bed for further therapies. I am going to switch the Cipro over to oral dosing for tomorrow morning to complete a full 7-day course since we did switch over from Rocephin to Cipro yesterday. I will continue IV Lasix 40 b.i.d., reassess lab work Saturday. We will also have [employer] following her. We will likely have OT do an evaluation next week. If she continues to improve on swing bed, we will continue that with therapies. Certainly if her conditions worsen, her goals of care would be for full comfort measures and we would pursue that if that time came. Otherwise, her magnesium was replaced IV and oral was stopped due to her having loose stools. She had some constipation on admission and there was some increase in her laxative, so we will just monitor how that goes. She has been ordered to have yogurt for C. diff prophylaxis as well. Greater than 30 minutes spent on the discharge process. RANJITA: 01/30/2019 13:06:06 MODL: 01/30/2019 15:24:02 /[id number]
== END 2019-01-30 14:00 | disposition swing bed (61) | DRG 682 ==
LOC: VM.ED 05:47 → VM.MS 09:20
PROVIDERS: ADMIT Internal Medicine; ATTEND Internal Medicine
PROC: 30233N1 Transfusion of Nonautologous Red Blood Cells into Peripheral Vein, Percutaneous Approach (ICD-10-PCS; principal; 2019-01-27)
DX: N17.9 Acute kidney failure, unspecified (principal); K65.2 Spontaneous bacterial peritonitis; E44.0 Moderate protein-calorie malnutrition; R18.0 Malignant ascites; C78.6 Secondary malignant neoplasm of retroperitoneum and peritoneum; C78.7 Secondary malignant neoplasm of liver and intrahepatic bile duct; Z68.41 Body mass index [BMI] 40.0-44.9, adult; Z66 Do not resuscitate; Z51.5 Encounter for palliative care; E86.0 Dehydration; C54.1 Malignant neoplasm of endometrium; I10 Essential (primary) hypertension; E78.5 Hyperlipidemia, unspecified; G47.33 Obstructive sleep apnea (adult) (pediatric); E66.9 Obesity, unspecified; D64.81 Anemia due to antineoplastic chemotherapy; T45.1X5A Adverse effect of antineoplastic and immunosuppressive drugs, initial encounter; D63.0 Anemia in neoplastic disease; E78.00 Pure hypercholesterolemia, unspecified; K21.9 Gastro-esophageal reflux disease without esophagitis; K59.09 Other constipation; W18.30XA Fall on same level, unspecified, initial encounter; R05 Cough; M25.571 Pain in right ankle and joints of right foot; Z79.01 Long term (current) use of anticoagulants; Z79.899 Other long term (current) drug therapy; Y92.002 Bathroom of unspecified non-institutional (private) residence as the place of occurrence of the external cause; Z90.710 Acquired absence of both cervix and uterus; Z92.21 Personal history of antineoplastic chemotherapy; Z86.718 Personal history of other venous thrombosis and embolism; Z86.711 Personal history of pulmonary embolism; Z88.2 Allergy status to sulfonamides
CPT/HCPCS: 36415; 36430; 51702; 71045; 73600-RT; 73630-RT; 80048; 80053; 81001; 82550; 83735; 84443; 85025; 86850; 86900; 86901; 86920; 86922; 87070; 87086; 87205; 89051; 94760; 96361; 96374; 96375; 99284-GF; 99285-25; A9270-GY; J0696; J0744; J1170; J1642; J1940; J2270; J3475; J7030; P9016

== ENCOUNTER 2019-01-30 13:23 | Inpatient (IN) | payer MEDICARE, BC ==
[2019-01-30] MEDS ORDERED: Ondansetron 4 MG Tab.DIS PO PRN (16:55)
[2019-01-30] MEDS: Benzonatate 100 MG Cap PO SCH (19:45)
[2019-01-30] MEDS: guaiFENesin/Dextromethorphan 100-10 MG/5 ML Soln 10 ML Cup PO PRN (19:46)
[2019-01-30] MEDS: Sodium Chloride 0.65% Nasal Spray 45 ML Bottle NAS SCH (19:46)
[2019-01-30] MEDS: Ciprofloxacin in D5W 200 MG in Premix Bag 1 BAG IV SCH ×2 (19:46)
[2019-01-30] MEDS: Sodium Chloride 0.9% 10 ML Syringe IV SCH (22:07)
[2019-01-31] MEDS: Sodium Chloride 0.65% Nasal Spray 45 ML Bottle NAS SCH ×6 (01:46→19:33)
[2019-01-31] MEDS: LORazepam 0.5 MG Tab PO PRN ×2 (05:10→19:31)
[2019-01-31] MEDS: Omeprazole 20 MG Cap.CR PO SCH ×2 (05:13→06:59)
[2019-01-31] MEDS: Levothyroxine 125 MCG Tab PO SCH ×2 (05:14→06:58)
[2019-01-31] MEDS: Ciprofloxacin in D5W 200 MG in Premix Bag 1 BAG IV SCH ×2 (09:29)
[2019-01-31] MEDS: Benzonatate 100 MG Cap PO SCH ×3 (09:30→19:33)
[2019-01-31] MEDS: Sodium Chloride 0.9% 10 ML Syringe IV SCH ×2 (09:30→19:32)
[2019-01-31] MEDS: guaiFENesin/Dextromethorphan 100-10 MG/5 ML Soln 10 ML Cup PO PRN (09:30)
[2019-01-31] MEDS: Furosemide 40 MG/4 ML VIAL IV SCH ×2 (09:30→16:48)
[2019-01-31] MEDS: Sodium Chloride 0.9% 10 ML Syringe IV PRN ×2 (16:49→18:34)
[2019-01-31] MEDS: Ciprofloxacin 250 MG Tab PO SCH (19:32)
[2019-01-31] MEDS: HYDROmorphone 1 MG/ML Syringe IVPUSH PRN (19:41)
[2019-02-01] MEDS: Sodium Chloride 0.65% Nasal Spray 45 ML Bottle NAS SCH ×5 (01:23→17:07)
[2019-02-01] MEDS: HYDROmorphone 1 MG/ML Syringe IVPUSH PRN (02:09)
[2019-02-01] MEDS: Sodium Chloride 0.9% 10 ML Syringe IV PRN ×2 (02:15→17:06)
[2019-02-01] MEDS: Omeprazole 20 MG Cap.CR PO SCH (06:37)
[2019-02-01] MEDS: Levothyroxine 125 MCG Tab PO SCH (06:37)
[2019-02-01] MEDS: Furosemide 40 MG/4 ML VIAL IV SCH ×2 (08:50→17:06)
[2019-02-01] MEDS: Sodium Chloride 0.9% 10 ML Syringe IV SCH ×2 (08:51→21:42)
[2019-02-01] MEDS: guaiFENesin/Dextromethorphan 100-10 MG/5 ML Soln 10 ML Cup PO PRN ×3 (08:51→20:10)
[2019-02-01] MEDS: Benzonatate 100 MG Cap PO SCH ×3 (08:51→20:04)
[2019-02-01] MEDS: Ciprofloxacin 250 MG Tab PO SCH ×2 (08:51→20:04)
[2019-02-01] MEDS: LORazepam 0.5 MG Tab PO PRN (17:07)
[2019-02-02] MEDS: Sodium Chloride 0.65% Nasal Spray 45 ML Bottle NAS SCH ×7 (00:48→19:34)
[2019-02-02] MEDS: LORazepam 0.5 MG Tab PO PRN ×2 (02:13→21:37)
[2019-02-02] MEDS: HYDROmorphone 1 MG/ML Syringe IVPUSH PRN (02:13)
[2019-02-02] MEDS: Levothyroxine 125 MCG Tab PO SCH (05:59)
[2019-02-02] MEDS: Omeprazole 20 MG Cap.CR PO SCH (05:59)
[2019-02-02 06:54] LABS: ANION GAP 11.4 mmol/L (10-20)
[2019-02-02] MEDS: Benzonatate 100 MG Cap PO SCH ×3 (08:29→19:35)
[2019-02-02] MEDS: Ciprofloxacin 250 MG Tab PO SCH (08:29)
[2019-02-02] MEDS: guaiFENesin/Dextromethorphan 100-10 MG/5 ML Soln 10 ML Cup PO PRN ×2 (08:29→19:35)
[2019-02-02] MEDS: Furosemide 40 MG/4 ML VIAL IV SCH (09:10)
[2019-02-02] MEDS: PRADAXA 150 MG PO SCH ×2 (09:28→19:34)
[2019-02-02] MEDS: diphenhydrAMINE 25 MG Cap PO PRN ×2 (09:29→21:38)
[2019-02-02] MEDS: Hydrocortisone 1% Crm 30 GM Tube TOP SCH ×2 (09:29→19:35)
[2019-02-02] MEDS: Furosemide 40 MG Tab PO SCH ×2 (09:29→16:25)
[2019-02-02] MEDS: Sodium Chloride 0.9% 10 ML Syringe IV SCH ×2 (14:06→19:36)
[2019-02-02] MEDS: Magnesium Oxide 400 MG Tab PO SCH ×2 (16:25→19:35)
--- NOTE | 2019-02-02 16:30 | PN ---
Progress Note for BRIDGET SALVADOR Date: 02/02/2019 Room #: VM.222 SUBJECTIVE: 68-year-old seen today for swing bed rounds. The patient did receive some Dilaudid during the night last night to help with sleep. She felt she slept pretty well. We also had increased her lorazepam to 1 mg instead of a 0.5 mg, which she also took during the night. She is denying any pain. Her cough and breathing continued to be a problem, but they are not any worse or any better than last week. She has been afebrile. She had 1200 of ascites drained out on Saturday. She has continued to have a negative fluid balance on the IV Lasix, over a liter per day. Her kidney function continues to improve. She was up in the chair twice Saturday, once yesterday. It really wore her out. She is prepared and anxious to work with physical therapy. OBJECTIVE: VITAL SIGNS: This morning, her temperature 97.1, pulse 104, blood pressure 111/66, respiratory rate 18, and O2 of 98% on 5 L. GENERAL: She is in no acute distress. HEART: Regular rate and rhythm. S1, S2 without murmur. LUNGS: Sounds decreased but clear. ABDOMEN: Distended, soft, and nontender. EXTREMITIES: Warm and dry. Bruising over the right foot but no edema. MENTAL STATUS: Alert and orientated x3. LABORATORY WORK: Does show her to have white count improved slightly to 35.2. She has been on Cipro. Her last dose is planned for this a.m., to complete a 1 week course of antibiotics. Her hemoglobin is stable at 9.8, platelets 232. Sodium 138, potassium 4.4, chloride 101, bicarbonate 30, BUN 44, and creatinine 1.8, which is improved. Calcium 10.18, magnesium 1.6, bilirubin 0.5, AST 77, ALT 39, albumin 1.9, and alkaline phosphatase 413. ASSESSMENT AND PLAN: 1. Metastatic endometrial cancer. We will do ascites drain again today. She is comfortable currently with her symptom management. She has severe weakness and deconditioning. We will get her up working with therapies. 2. Hypomagnesemia. Magnesium was stopped. We gave her some intravenous because of loose stools. We will go ahead and restart oral magnesium today. 3. Loose stools due to laxatives. They are now on hold. 4. Chronic anemia. We will continue to monitor. Repeat laboratories . 5. Severe malnutrition. 6. Leukocytosis, probable source was the infection of the ascites. She has completed 1 week of antibiotics. 7. Chronic cough with some shortness of breath. She will continue current therapies. 8. History of deep venous thrombosis and pulmonary embolism. She is not actively bleeding. We will go ahead and start the Pradaxa. 9. Essential hypertension with fluid retention. She has been off the lisinopril. We will continue her on Lasix but switch her over to oral 40 b.i.d. 10.Acute renal failure. Creatinine improving, now down to 1.8. She is making urine. We will continue to monitor. The plan at this point, the patient will continue swing bed cares. She will work with therapies. MKA: 02/02/2019 15:43:40 MODL: 02/02/2019 16:17:43 /[id number] MTDD
[2019-02-02] MEDS: Sodium Chloride 0.9% 10 ML Syringe IV PRN (16:59)
[2019-02-03] MEDS: Sodium Chloride 0.65% Nasal Spray 45 ML Bottle NAS SCH ×6 (00:31→19:37)
[2019-02-03] MEDS: guaiFENesin/Dextromethorphan 100-10 MG/5 ML Soln 10 ML Cup PO PRN ×2 (00:31→19:34)
[2019-02-03] MEDS: LORazepam 0.5 MG Tab PO PRN ×3 (00:32→19:35)
[2019-02-03] MEDS: Sodium Chloride 0.9% 10 ML Syringe IV PRN ×2 (06:11→19:36)
[2019-02-03] MEDS: Omeprazole 20 MG Cap.CR PO SCH (06:11)
[2019-02-03] MEDS: Levothyroxine 125 MCG Tab PO SCH (06:12)
[2019-02-03] MEDS: Benzonatate 100 MG Cap PO SCH ×3 (08:47→19:35)
[2019-02-03] MEDS: Furosemide 40 MG Tab PO SCH ×2 (08:47→16:23)
[2019-02-03] MEDS: diphenhydrAMINE 25 MG Cap PO PRN ×2 (08:47→19:34)
[2019-02-03] MEDS: Magnesium Oxide 400 MG Tab PO SCH ×2 (08:47→19:35)
[2019-02-03] MEDS: Hydrocortisone 1% Crm 30 GM Tube TOP SCH ×2 (08:50→19:34)
[2019-02-03] MEDS: PRADAXA 150 MG PO SCH ×2 (08:50→19:34)
[2019-02-03] MEDS: Sodium Chloride 0.9% 10 ML Syringe IV SCH (09:21)
[2019-02-04] MEDS: Sodium Chloride 0.65% Nasal Spray 45 ML Bottle NAS SCH ×6 (00:38→23:07)
[2019-02-04] MEDS: Levothyroxine 125 MCG Tab PO SCH (06:16)
[2019-02-04] MEDS: Omeprazole 20 MG Cap.CR PO SCH (06:16)
[2019-02-04] MEDS: Sodium Chloride 0.9% 10 ML Syringe IV PRN (06:16)
[2019-02-04] MEDS: Sodium Chloride 0.9% 10 ML Syringe IV SCH (06:17)
[2019-02-04] MEDS: guaiFENesin/Dextromethorphan 100-10 MG/5 ML Soln 10 ML Cup PO PRN ×3 (09:33→22:42)
[2019-02-04] MEDS: LORazepam 0.5 MG Tab PO PRN ×2 (09:33→22:41)
[2019-02-04] MEDS: Hydrocortisone 1% Crm 30 GM Tube TOP SCH ×2 (09:33→22:42)
[2019-02-04] MEDS: Acetaminophen 325 MG Tab PO PRN (09:34)
[2019-02-04] MEDS: Benzonatate 100 MG Cap PO SCH ×3 (09:34→22:41)
[2019-02-04] MEDS: Magnesium Oxide 400 MG Tab PO SCH ×2 (09:34→22:42)
[2019-02-04] MEDS: Furosemide 40 MG Tab PO SCH ×2 (09:34→16:10)
[2019-02-04] MEDS: diphenhydrAMINE 25 MG Cap PO PRN ×2 (09:34→16:41)
[2019-02-04] MEDS: PRADAXA 150 MG PO SCH ×2 (09:35→22:40)
[2019-02-05] MEDS: Sodium Chloride 0.65% Nasal Spray 45 ML Bottle NAS SCH ×6 (01:43→20:40)
[2019-02-05] MEDS: HYDROmorphone 1 MG/ML Syringe IVPUSH PRN (02:57)
[2019-02-05] MEDS: Omeprazole 20 MG Cap.CR PO SCH (06:00)
[2019-02-05] MEDS: Levothyroxine 125 MCG Tab PO SCH (06:00)
[2019-02-05] MEDS: Sodium Chloride 0.9% 10 ML Syringe IV SCH (06:01)
[2019-02-05] MEDS: Furosemide 40 MG Tab PO SCH (07:17)
[2019-02-05] MEDS: Magnesium Oxide 400 MG Tab PO SCH ×2 (07:17→20:39)
[2019-02-05] MEDS: Benzonatate 100 MG Cap PO SCH ×2 (07:18→11:42)
[2019-02-05] MEDS: diphenhydrAMINE 25 MG Cap PO PRN ×3 (07:18→22:24)
[2019-02-05] MEDS: LORazepam 0.5 MG Tab PO PRN ×3 (07:18→22:24)
[2019-02-05] MEDS: PRADAXA 150 MG PO SCH ×2 (07:19→20:40)
[2019-02-05] MEDS: Hydrocortisone 1% Crm 30 GM Tube TOP SCH ×2 (07:20→20:39)
[2019-02-05 07:22] LABS: ANION GAP 12.2 mmol/L (10-20)
--- NOTE | 2019-02-05 15:39 | CR ---
[id number] RAD/RAD Chest PA or AP 1V EXAM: RAD Chest PA or AP 1V INDICATION: COUGH. COMPARISON: January 27, 2019 DISCUSSION: Right chest wall port catheter in place. Tip projects over the right atrium. Cardiomediastinal silhouette is stable in size and contour. No infiltrate, effusion, pneumothorax, or edema. IMPRESSION: Negative for pneumonia or other acute findings in the chest. Prasad Chappell MD 02/05/19 1539 Thank you for allowing us to participate in the care of your patient.
--- NOTE | 2019-02-05 16:21 | PN ---
Progress Note for BRIDGET SALVADOR Date: 02/05/2019 Room #: VM.222 SUBJECTIVE: This is a 68-year-old is on swing bed after an acute stay for anemia, renal failure, and possible ascites fluid infection. She had been transitioned to Swing Bed for therapies. She is still quite weak, mainly done range of motion exercises in the bed, working with a Roxana Lift, having considerably difficult transfers due to her overall weakness and deconditioning from metastatic endometrial cancer. She was able to use the commode today, had a bowel movement. She felt constipated prior to that. Earlier, she was having some diarrhea from the laxatives. She is not having any pain, but continues to have itching over her abdomen. She has some bruising there. We did restart the Pradaxa on Saturday due to her history of pulmonary embolism. She has not had any increased shortness of breath, but her cough is still a problem despite Tessalon Perles. She coughs most of the day yesterday. She has been afebrile. We had cut back to every other day on her PleurX catheter abdominal drainage and yesterday it was up to 1100, which is the most it had been. She has maintained on oral Lasix. She is still having good urine output. The patient completed antibiotics with Cipro on Saturday of 1-week course. OBJECTIVE: Vital Signs: On exam, her temperature 97.1, pulse 104, blood pressure 111/66, respiratory rate 18, O2 98% on 5 L. General: Patient is quite fatigued. She appears pale. She is resting in bed. She falls asleep during the end of her exam. Heart: Regular rate and rhythm. Lungs: Sounds decreased but good respiratory effort. No crackles are appreciated. Abdomen: Positive bowel sounds. Soft. It is nondistended. It is nontender. Some bruising with some yellow skin discoloration over the suprapubic area with the catheter in place to the right of that. Mental Status: She is alert, she is orientated. Overall, her mood appears more somber, slightly depressed when compared to her upbeat attitude last week. LABORATORY DATA: Lab work reviewed from today that showed white count went up to 46.8, hemoglobin 9.3, platelets 236. Sodium 139, potassium 4.2, chloride 99, bicarb 32, BUN 55, creatinine 2.1, calcium 10.5, AST 76, alkaline phosphatase 437, albumin 1.9. Chest x-ray done today. Preliminary report on my view does not show any new infiltrates or pneumonia. ASSESSMENT AND PLAN: 1. Acute renal failure, probably due to volume depletion and her metastatic cancer with ascites. Creatinine had improved to 1.8, it is now up to 2.1. She is still making good urine. We will continue Lasix to focus on fluid management, but I did decrease it to once daily. 2. Metastatic endometrial cancer with ascites drain in place. We are going to go back to daily drain. 3. Constipation. We are adjusting laxatives. She is also on magnesium. 4. Hypomagnesemia. She will continue the oral supplements as this also helps with her constipation. 5. Severe malnutrition. She is allowed to eat and drink whatever she chooses. 6. Leukocytosis. We will get the official read on that x-ray, but no source of infection had previously been found. She continues to cough, but was doing so even before this. If there is a treatable condition like pneumonia, we can certainly start antibiotics, but at this point, I do not feel that there is a pneumonia causing her cough and we will continue symptomatic treatment. Tessalon Perles did not help, we will stop that, and we will use intermittent cough syrup, and actually, I will schedule it 3 times a day. 7. History of deep venous thrombosis and pulmonary embolism. She is on Pradaxa. When the patient goes on comfort end of life cares, we will likely stop that. This was discussed with her and her today. 8. Essential hypertension. She is off her lisinopril. We will continue with Lasix. Blood pressures are under control. 9. Acute on chronic renal failure. Creatinine has creeped up to 2.1. We may recheck lab work on Saturday. However, after I saw the patient today, I did discuss with the medical social worker that Physical Therapy did put in a notice for her, and as I had already discussed with the patient and called her daughter, that eventually she will transition over to end of life cares, which will happen over the next couple of days. Otherwise, the patient's intake on her diet, it should be noted, had also been good like 75% to 100% and it recently fell yesterday down to 30%. Certainly, some of her fatigue and tiredness could be from the medications she received 2 to 3 doses of Ativan during the day, but sleep is still a problem at night, so we will keep the 1 mg scheduled and then go back to 0.5 for the p.r.n. dosing. She has also used a couple doses of Benadryl for the itching and has used some creams like cortisone over the abdomen as well. Her daughter, Laly, number is [phone]. Plans to travel to [place] in the next couple days and her son is also coming today. Her is at the bedside and supportive. MKA: 02/05/2019 14:45:17 MODL: 02/05/2019 15:35:49 /[id number]
[2019-02-05] MEDS: LORazepam 1 MG Tab PO SCH (20:38)
[2019-02-05] MEDS: Ciprofloxacin 250 MG Tab PO SCH (20:39)
[2019-02-06] MEDS: Sodium Chloride 0.65% Nasal Spray 45 ML Bottle NAS SCH ×6 (04:15→19:55)
[2019-02-06] MEDS: Sodium Chloride 0.9% 10 ML Syringe IV SCH (06:21)
[2019-02-06] MEDS: Levothyroxine 125 MCG Tab PO SCH (06:21)
[2019-02-06] MEDS: Hydrocortisone 1% Crm 30 GM Tube TOP SCH ×2 (08:14→19:57)
[2019-02-06] MEDS: Ciprofloxacin 250 MG Tab PO SCH ×2 (08:14→19:56)
[2019-02-06] MEDS: Magnesium Oxide 400 MG Tab PO SCH (08:14)
[2019-02-06] MEDS: Furosemide 40 MG Tab PO SCH (08:14)
[2019-02-06] MEDS: HYDROmorphone 1 MG/ML Syringe IVPUSH PRN ×2 (08:49→22:53)
[2019-02-06] MEDS: Sodium Chloride 0.9% 10 ML Syringe IV PRN ×2 (08:51→22:53)
--- NOTE | 2019-02-06 08:55 | PN ---
Progress Note for BRIDGET SALVADOR Date: 02/06/2019 Room #: VM.222 SUBJECTIVE: This is a 68-year-old on swing bed, now transitioning over to end of life care as she was too weak to continue therapies with PT. She does have metastatic endometrial cancer with ascites. We went back to every day draining and she had 450 out yesterday. She has no abdominal pain. Her cough seems a little bit better this morning. She did start having some pain around her catheter, which is placed for comfort and urinary retention. We had checked a UA, she had 5-10 wbc's, we started her on Cipro, and she reports that things are better today. She has been afebrile, but her white count had gone up significantly yesterday. We discussed that we are not going to do any further lab monitoring, she is agreeable to this. She was taking her pills. The magnesium was quite sour tasting, she has been taking that for low magnesium and constipation. At this point, we discussed discontinuing that and her Pradaxa focusing on mainly comfort medications, which include her Lasix for fluid management, Ativan, Zofran, and Dilaudid. She is also taking levothyroxine, tolerating that without problems. She has p.r.n. Benadryl as well. ASSESSMENT AND PLAN: 1. Endometrial cancer, metastatic with ascites. She is transitioning over to comfort measures. She has been getting some intermittent doses of hydromorphone. If her cough gets worse, we will go ahead and schedule that, last dose was on 02/05/2019. Otherwise, she slept well with Ativan at bedtime. She also has p.r.n. Ativan during the day. 2. Multiple medical comorbidities including renal failure and anemia with no further monitoring required as the goals of care are comfort. Her son is here and her daughter is arriving this weekend. is also in the room this AM. MKA: 02/06/2019 08:38:45 MODL: 02/06/2019 08:49:04 /[id number] GALINDO
[2019-02-06] MEDS: PRADAXA 150 MG PO SCH (09:08)
[2019-02-06] MEDS: LORazepam 1 MG Tab PO SCH (19:56)
[2019-02-06] MEDS: diphenhydrAMINE 25 MG Cap PO PRN (19:56)
[2019-02-06] MEDS: guaiFENesin/Dextromethorphan 100-10 MG/5 ML Soln 10 ML Cup PO PRN (19:59)
[2019-02-07] MEDS: Sodium Chloride 0.65% Nasal Spray 45 ML Bottle NAS SCH ×7 (01:30→23:49)
[2019-02-07] MEDS: Levothyroxine 125 MCG Tab PO SCH (06:13)
[2019-02-07] MEDS: Sodium Chloride 0.9% 10 ML Syringe IV SCH (06:13)
[2019-02-07] MEDS: Furosemide 40 MG Tab PO SCH (08:55)
[2019-02-07] MEDS: Ciprofloxacin 250 MG Tab PO SCH ×2 (08:55→19:42)
[2019-02-07] MEDS: diphenhydrAMINE 25 MG Cap PO PRN (08:55)
[2019-02-07] MEDS: Hydrocortisone 1% Crm 30 GM Tube TOP SCH ×2 (08:55→19:41)
[2019-02-07] MEDS: diphenhydrAMINE 50 MG/ML SDV IVPUSH SCH ×3 (10:16→22:06)
[2019-02-07] MEDS: hydrOXYzine HCl 25 MG Tab PO SCH ×2 (10:16→19:41)
[2019-02-07] MEDS ORDERED: Sodium Phosphate,Monobasic/Sodium Phosphate,Dibasic Enema 133 ML Bottle RECTAL PRN (10:53)
--- NOTE | 2019-02-07 12:11 | PN ---
Progress Note for BRIDGET SALVADOR Date: 02/07/2019 Room #: VM.222 SUBJECTIVE: This is a 68-year-old on swing bed for comfort measures and end-of- life care. The patient was working with therapies earlier this week, but was getting too weak. She did get up to the commode on but felt that she lacks the core strength to safely get up there today. She did have 2 good bowel movements on , but her most concerning thing today is pressure in her rectum, feeling like she has to have a bowel movement. Otherwise, she has metastatic endometrial cancer with ascites. She had 450 out of her drain yesterday. She has been afebrile. She had a catheter change. She is having no further burning with urination. Her culture did grow Staph coagulase-negative. She is on Cipro short course to finish tomorrow. Otherwise, her cough seems to be better, still having a few spells. Her biggest other concern is itching, seems to be better after some IV Benadryl. She has been getting oral Benadryl. She is having a harder time taking pills. She has also been getting oral Ativan to help with sleep. She has received 2 doses of Dilaudid in the last 24 hours for discomfort as well, but no abdominal pain. Also, this helps her to just rest. OBJECTIVE: Vital Signs: Objectively, her temperature is 97.8, pulse 94, blood pressure 110/62, respiratory rate 16, O2 saturation 100% on 4 L. General: She is in no immediate distress, but she is lying on her side, requesting to have a BM. Says she needs to get up out of bed and walk, which is not something she has done since she has been admitted. Heart: Regular rate and rhythm. Lungs: Lung sounds are clear to auscultation. Abdomen: Ascites but nontender. Extremities: Trace edema. Skin: Otherwise, overall in general her color appears pale. No significant yellowing of the skin. LABORATORY DATA: Did have labs a couple days ago. Her bilirubin was normal. Creatinine went back up to 2.1, BUN 55. Hemoglobin had remained stable at 9.3 and white count was 46.8. ASSESSMENT AND PLAN: 1. Metastatic endometrial cancer, on comfort cares and end-of-life treatment. We will focus on her symptoms which are constipation and itching and adjust her medications appropriately. We have changed her Ativan over to IV. We ordered some scheduled Benadryl and hydroxyzine p.r.n. also available. 2. Multiple medical comorbidities including renal failure and anemia, which are likely contributing to her itching. We will continue to manage her symptoms. and daughter were here today and updated. MKA: 02/07/2019 11:36:24 MODL: 02/07/2019 12:03:48 /[id number]
[2019-02-07] MEDS: Bisacodyl 10 MG Supp RECTAL PRN (13:38)
[2019-02-07] MEDS: LORazepam 2 MG/ML SDV IVPUSH PRN (13:38)
[2019-02-07] MEDS: Sodium Chloride 0.9% 10 ML Syringe IV PRN ×3 (16:51→22:07)
[2019-02-07] MEDS: LORazepam 2 MG/ML SDV IVPUSH SCH (19:42)
[2019-02-07] MEDS: guaiFENesin/Dextromethorphan 100-10 MG/5 ML Soln 10 ML Cup PO PRN (19:45)
[2019-02-08] MEDS: Sodium Chloride 0.65% Nasal Spray 45 ML Bottle NAS SCH ×5 (04:25→19:44)
[2019-02-08] MEDS: diphenhydrAMINE 50 MG/ML SDV IVPUSH SCH ×4 (04:26→22:29)
[2019-02-08] MEDS: Sodium Chloride 0.9% 10 ML Syringe IV PRN ×4 (04:26→22:30)
[2019-02-08] MEDS: Levothyroxine 125 MCG Tab PO SCH (06:22)
[2019-02-08] MEDS: Sodium Chloride 0.9% 10 ML Syringe IV SCH (06:23)
[2019-02-08] MEDS: Ciprofloxacin 250 MG Tab PO SCH ×2 (08:18→19:45)
[2019-02-08] MEDS: Hydrocortisone 1% Crm 30 GM Tube TOP SCH ×2 (08:18→19:46)
[2019-02-08] MEDS: hydrOXYzine HCl 25 MG Tab PO SCH ×2 (08:18→19:46)
[2019-02-08] MEDS: Furosemide 40 MG Tab PO SCH (08:18)
[2019-02-08] MEDS: LORazepam 2 MG/ML SDV IVPUSH SCH (19:44)
[2019-02-09] MEDS: Sodium Chloride 0.65% Nasal Spray 45 ML Bottle NAS SCH ×6 (01:00→21:08)
[2019-02-09] MEDS: Sodium Chloride 0.9% 10 ML Syringe IV PRN ×3 (01:34→16:47)
[2019-02-09] MEDS: HYDROmorphone 1 MG/ML Syringe IVPUSH PRN ×2 (01:34→22:48)
[2019-02-09] MEDS: diphenhydrAMINE 50 MG/ML SDV IVPUSH SCH ×4 (05:00→21:59)
[2019-02-09] MEDS: Levothyroxine 125 MCG Tab PO SCH (06:20)
[2019-02-09] MEDS: Sodium Chloride 0.9% 10 ML Syringe IV SCH (06:20)
[2019-02-09] MEDS: hydrOXYzine HCl 25 MG Tab PO SCH ×2 (10:03→21:07)
[2019-02-09] MEDS: Hydrocortisone 1% Crm 30 GM Tube TOP SCH (10:04)
[2019-02-09] MEDS: Furosemide 40 MG Tab PO SCH (10:04)
[2019-02-09] MEDS: Hydrocortisone 2.5% Crm 30 GM Tube TOP SCH ×2 (11:59→21:07)
[2019-02-09] MEDS: Mineral Oil/Petrolatum/Phenylephrine/Shark Liver Oil Oint 57 GM Tube RECTAL PRN (12:00)
[2019-02-09] MEDS: LORazepam 2 MG/ML SDV IVPUSH SCH (21:07)
[2019-02-10] MEDS: Sodium Chloride 0.65% Nasal Spray 45 ML Bottle NAS SCH ×6 (01:11→20:34)
[2019-02-10] MEDS: Sodium Chloride 0.9% 10 ML Syringe IV SCH (06:11)
[2019-02-10] MEDS: diphenhydrAMINE 50 MG/ML SDV IVPUSH SCH ×4 (06:11→22:38)
[2019-02-10] MEDS: Levothyroxine 125 MCG Tab PO SCH (06:12)
[2019-02-10] MEDS: Mineral Oil/Petrolatum/Phenylephrine/Shark Liver Oil Oint 57 GM Tube RECTAL PRN (07:59)
[2019-02-10] MEDS: Hydrocortisone 2.5% Crm 30 GM Tube TOP SCH ×2 (07:59→20:31)
[2019-02-10] MEDS: Furosemide 40 MG Tab PO SCH (08:00)
[2019-02-10] MEDS: hydrOXYzine HCl 25 MG Tab PO SCH ×2 (08:00→20:34)
--- NOTE | 2019-02-10 09:31 | PN ---
Progress Note for BRIDGET SALVADOR Date: 02/10/2019 Room #: VM.222 SUBJECTIVE: This is a 68-year-old on end of life cares on swing bed for comfort control. She was having a lot of itching. It is under control with IV Benadryl. She prefers to continue with that. She was also having a lot of rectal pain after some constipation and manual disimpaction, but the preparation H is helping. She has been receiving IV Dilaudid. She had 2 doses yesterday for discomfort, but does not have any severe abdominal pain. She has also been receiving Ativan 1 mg at bedtime IV to help with sleep. She is still able to swallow pills, but preferred the IV preparation as her oral intake has been decreasing 50% or less of most meals. She is still having drainage from her PleurX down in the ascites 1100 yesterday. Urine output has been up and down. She has the Russo in place for comfort, only 440 on the , but up to 890 yesterday. She has been afebrile. Objectively, has not had any vitals for a couple days. She is having some confusion at times like telling her things were left on and burning on the stove and they are in the hospital, not at their apartment. She did complete antibiotics for the UTI, which had some burning around the catheter, which is no longer present. OBJECTIVE: Heart: Regular rate and rhythm. Lungs: Lungs sounds are clear with poor effort. Her cough is better. Abdomen: Distended with some ascites, but nontender. ASSESSMENT AND PLAN: 1. Metastatic endometrial cancer, on comfort cares and end of life treatments, getting IV Dilaudid, Benadryl and Ativan with good control of her symptoms. She is also on the senna. 2. Multiple medical comorbidities, renal failure, anemia, severe malnutrition; all being managed with comfort measures. The patient should continue on the current cares. MKA: 02/10/2019 08:56:28 MODL: 02/10/2019 09:14:36 /[id number]
[2019-02-10] MEDS: Sodium Chloride 0.9% 10 ML Syringe IV PRN (16:28)
[2019-02-10] MEDS: LORazepam 2 MG/ML SDV IVPUSH SCH (20:34)
[2019-02-11] MEDS: Sodium Chloride 0.65% Nasal Spray 45 ML Bottle NAS SCH ×6 (01:05→21:05)
[2019-02-11] MEDS: diphenhydrAMINE 50 MG/ML SDV IVPUSH SCH ×4 (03:16→21:04)
[2019-02-11] MEDS: Levothyroxine 125 MCG Tab PO SCH (06:30)
[2019-02-11] MEDS: Sodium Chloride 0.9% 10 ML Syringe IV SCH (06:30)
[2019-02-11] MEDS: Hydrocortisone 2.5% Crm 30 GM Tube TOP SCH ×2 (11:36→21:04)
[2019-02-11] MEDS: hydrOXYzine HCl 25 MG Tab PO SCH ×2 (11:37→21:04)
[2019-02-11] MEDS: Furosemide 40 MG Tab PO SCH (11:37)
[2019-02-11] MEDS: Sodium Chloride 0.9% 10 ML Syringe IV PRN (16:03)
[2019-02-11] MEDS: Ondansetron 4 MG/2 ML SDV IVPUSH PRN (16:03)
[2019-02-11] MEDS: LORazepam 2 MG/ML SDV IVPUSH SCH (21:04)
[2019-02-12] MEDS: Sodium Chloride 0.65% Nasal Spray 45 ML Bottle NAS SCH ×7 (01:04→23:38)
[2019-02-12] MEDS: LORazepam 2 MG/ML SDV IVPUSH PRN ×2 (01:05→23:46)
[2019-02-12] MEDS: Sodium Chloride 0.9% 10 ML Syringe IV SCH (06:33)
[2019-02-12] MEDS: diphenhydrAMINE 50 MG/ML SDV IVPUSH SCH ×4 (06:33→23:38)
[2019-02-12] MEDS: Levothyroxine 125 MCG Tab PO SCH (06:34)
[2019-02-12] MEDS: hydrOXYzine HCl 25 MG Tab PO SCH ×2 (07:52→20:02)
[2019-02-12] MEDS: Hydrocortisone 2.5% Crm 30 GM Tube TOP SCH ×2 (07:52→20:01)
[2019-02-12] MEDS: Furosemide 40 MG Tab PO SCH (07:52)
[2019-02-12] MEDS: LORazepam 2 MG/ML SDV IVPUSH SCH (20:02)
[2019-02-13] MEDS: diphenhydrAMINE 50 MG/ML SDV IVPUSH SCH ×2 (05:38→10:36)
[2019-02-13] MEDS: Sodium Chloride 0.65% Nasal Spray 45 ML Bottle NAS SCH ×5 (05:38→20:45)
[2019-02-13] MEDS: hydrOXYzine HCl 25 MG Tab PO SCH ×2 (08:01→20:45)
[2019-02-13] MEDS: diphenhydrAMINE 25 MG Cap PO PRN (08:01)
[2019-02-13] MEDS: LORazepam 2 MG/ML SDV IVPUSH PRN (08:01)
[2019-02-13] MEDS: Furosemide 40 MG Tab PO SCH (08:01)
[2019-02-13] MEDS: Hydrocortisone 2.5% Crm 30 GM Tube TOP SCH ×2 (08:02→20:45)
[2019-02-13] MEDS: Sodium Chloride 0.9% 10 ML Syringe IV PRN ×2 (08:05→10:37)
[2019-02-13] MEDS: Levothyroxine 125 MCG Tab PO SCH (08:11)
[2019-02-13] MEDS: Sodium Chloride 0.9% 10 ML Syringe IV SCH (08:12)
[2019-02-13] MEDS ORDERED: Aluminum Hydroxide/Magnesium Hydroxide/Simethicone Susp 30 ML Cup PO PRN (16:19)
[2019-02-13] MEDS ORDERED: Prochlorperazine 10 MG in Sodium Chloride 0.9% 50 ML IV PRN (16:19)
[2019-02-13] MEDS ORDERED: Lidocaine 2% Viscous Solution 15 ML Cup PO PRN (16:19)
[2019-02-13] MEDS ORDERED: Atropine 1% Ophth Soln 5 ML BOTTLE SL PRN (16:19)
[2019-02-13] MEDS ORDERED: Menthol/Zinc Oxide Ointment 3.5 GM Tube TOP PRN (16:19)
[2019-02-13] MEDS ORDERED: Simethicone 80 MG Tab.Chew PO PRN (16:19)
[2019-02-13] MEDS ORDERED: Lactulose Soln 10 GM/15 ML 15 ML UD Cup PO PRN (16:19)
--- NOTE | 2019-02-13 17:13 | PN ---
Progress Note for BRIDGET SALVADOR Date: 02/13/2019 Room #: VM.222 SUBJECTIVE: This is a 68-year-old on swing bed for comfort cares and end of life with metastatic endometrial cancer. She was having a lot more itching this morning, did get an extra dose of Benadryl. Now, she is quite sleepy. She would like to try cutting back to p.r.n. Benadryl. Otherwise, her pain has been under good control. She has used the hydromorphone last couple of days ago, but she is using the IV Ativan routinely. She is resting good at night. Her most concerning symptom is constipation. She has not had a bowel movement for couple of days. Did get some rectal pain and is using some hemorrhoid cream. She has not required any enemas. She otherwise has had 300 out on her PleurX catheter in the abdomen drainage. She is still eating 100% with breakfast but most other meals are under 50. She has been afebrile. OBJECTIVE: General: She is in no acute distress. Heart: Regular rate and rhythm. Lungs: Sounds decreased with poor effort. Abdomen: With ascites but nontender. Extremities: Still with trace edema. Mental Status: She is alert. She is orientated x3, but again sleepy. ASSESSMENT AND PLAN: 1. Metastatic endometrial cancer with malignant ascites. We will continue with catheter drains but go to every other day if drainage remains low. 2. Multiple medical comorbidities including renal failure, anemia, severe malnutrition, all being managed with comfort cares. We will institute some further comfort care orders just in case needed for secretions. We will change the Benadryl IV to p.r.n. Her oncologist Dr. Shannon was in our clinic yesterday and did also stop by to say hi to her which she appreciated and remembered today. MKA: 02/13/2019 16:19:23 MODL: 02/13/2019 17:03:33 /[id number]
[2019-02-13] MEDS: Magnesium Hydroxide 400 MG/5 ML Susp 30 ML Cup PO PRN (20:45)
[2019-02-13] MEDS: LORazepam 2 MG/ML SDV IVPUSH SCH (22:25)
[2019-02-13] MEDS: Ondansetron 4 MG/2 ML SDV IVPUSH PRN (22:36)
[2019-02-14] MEDS: Sodium Chloride 0.65% Nasal Spray 45 ML Bottle NAS SCH ×6 (02:59→20:18)
[2019-02-14] MEDS: diphenhydrAMINE 50 MG/ML SDV IVPUSH PRN ×2 (04:47→22:21)
[2019-02-14] MEDS: Levothyroxine 125 MCG Tab PO SCH (07:00)
[2019-02-14] MEDS: Sodium Chloride 0.9% 10 ML Syringe IV SCH (07:44)
[2019-02-14] MEDS: hydrOXYzine HCl 25 MG Tab PO SCH ×2 (07:52→20:19)
[2019-02-14] MEDS: Furosemide 40 MG Tab PO SCH (07:52)
[2019-02-14] MEDS: Hydrocortisone 2.5% Crm 30 GM Tube TOP SCH ×2 (07:55→20:20)
[2019-02-14] MEDS: HYDROmorphone 1 MG/ML Syringe IVPUSH PRN ×2 (08:53→22:23)
[2019-02-14] MEDS: LORazepam 2 MG/ML SDV IVPUSH PRN (08:55)
[2019-02-14] MEDS: Magnesium Hydroxide 400 MG/5 ML Susp 30 ML Cup PO PRN (09:06)
[2019-02-14] MEDS: LORazepam 2 MG/ML SDV IVPUSH SCH (20:19)
[2019-02-14] MEDS: Sodium Chloride 0.9% 10 ML Syringe IV PRN ×3 (20:21→22:27)
[2019-02-15] MEDS: Sodium Chloride 0.65% Nasal Spray 45 ML Bottle NAS SCH ×6 (01:34→20:19)
[2019-02-15] MEDS: Sodium Chloride 0.9% 10 ML Syringe IV SCH (06:03)
[2019-02-15] MEDS: Levothyroxine 125 MCG Tab PO SCH (06:05)
[2019-02-15] MEDS: diphenhydrAMINE 50 MG/ML SDV IVPUSH PRN (08:12)
[2019-02-15] MEDS: LORazepam 2 MG/ML SDV IVPUSH PRN (08:12)
[2019-02-15] MEDS: hydrOXYzine HCl 25 MG Tab PO SCH ×2 (08:12→20:18)
[2019-02-15] MEDS: Furosemide 40 MG Tab PO SCH (08:12)
[2019-02-15] MEDS: Hydrocortisone 2.5% Crm 30 GM Tube TOP SCH ×2 (08:16→20:22)
[2019-02-15] MEDS: Bisacodyl 10 MG Supp RECTAL PRN (11:51)
[2019-02-15] MEDS: HYDROmorphone 1 MG/ML Syringe IVPUSH PRN (11:55)
[2019-02-15] MEDS: LORazepam 2 MG/ML SDV IVPUSH SCH (20:19)
[2019-02-15] MEDS: Sodium Chloride 0.9% 10 ML Syringe IV PRN (20:21)
[2019-02-15] MEDS: Ondansetron 4 MG/2 ML SDV IVPUSH PRN (21:32)
[2019-02-16] MEDS: diphenhydrAMINE 50 MG/ML SDV IVPUSH PRN (00:33)
[2019-02-16] MEDS: Sodium Chloride 0.65% Nasal Spray 45 ML Bottle NAS SCH ×6 (00:34→21:53)
[2019-02-16] MEDS: Sodium Chloride 0.9% 10 ML Syringe IV PRN (00:34)
[2019-02-16] MEDS: Metoclopramide 10 MG/2 ML SDV IVPUSH PRN (02:33)
[2019-02-16] MEDS: Sodium Chloride 0.9% 10 ML Syringe IV SCH (07:45)
[2019-02-16] MEDS: Levothyroxine 125 MCG Tab PO SCH (11:03)
[2019-02-16] MEDS: hydrOXYzine HCl 25 MG Tab PO SCH ×2 (11:04→21:52)
[2019-02-16] MEDS: Furosemide 40 MG Tab PO SCH (11:04)
[2019-02-16] MEDS: Acetaminophen 325 MG Tab PO PRN ×2 (11:04→16:33)
[2019-02-16] MEDS: Hydrocortisone 2.5% Crm 30 GM Tube TOP SCH ×2 (11:05→21:53)
[2019-02-16] MEDS: LORazepam 2 MG/ML SDV IVPUSH SCH ×2 (21:52→23:01)
[2019-02-17] MEDS: Sodium Chloride 0.65% Nasal Spray 45 ML Bottle NAS SCH ×6 (01:39→20:15)
[2019-02-17] MEDS: LORazepam 2 MG/ML SDV IVPUSH PRN ×2 (02:38→05:45)
[2019-02-17] MEDS: Levothyroxine 125 MCG Tab PO SCH ×2 (05:44→06:10)
[2019-02-17] MEDS: Sodium Chloride 0.9% 10 ML Syringe IV SCH (05:44)
[2019-02-17] MEDS: Furosemide 40 MG Tab PO SCH (07:42)
[2019-02-17] MEDS: hydrOXYzine HCl 25 MG Tab PO SCH ×2 (07:42→20:05)
[2019-02-17] MEDS: Ondansetron 4 MG/2 ML SDV IVPUSH PRN ×2 (07:57→20:03)
[2019-02-17] MEDS: Metoclopramide 10 MG/2 ML SDV IVPUSH PRN (07:57)
[2019-02-17] MEDS: Hydrocortisone 2.5% Crm 30 GM Tube TOP SCH ×2 (09:06→20:13)
[2019-02-17] MEDS: HYDROmorphone 1 MG/ML Syringe IVPUSH PRN (20:03)
[2019-02-17] MEDS: LORazepam 2 MG/ML SDV IVPUSH SCH (20:04)
[2019-02-18] MEDS: Sodium Chloride 0.65% Nasal Spray 45 ML Bottle NAS SCH ×6 (01:16→20:04)
[2019-02-18] MEDS: Levothyroxine 125 MCG Tab PO SCH (06:12)
[2019-02-18] MEDS: Sodium Chloride 0.9% 10 ML Syringe IV SCH (06:12)
[2019-02-18] MEDS: Furosemide 40 MG Tab PO SCH (09:01)
[2019-02-18] MEDS: Omeprazole 20 MG Cap.CR PO SCH (09:01)
[2019-02-18] MEDS: hydrOXYzine HCl 25 MG Tab PO SCH ×2 (09:01→20:04)
[2019-02-18] MEDS: Metoclopramide 10 MG/2 ML SDV IVPUSH SCH ×3 (09:05→20:05)
[2019-02-18] MEDS: Hydrocortisone 2.5% Crm 30 GM Tube TOP SCH ×2 (09:06→20:04)
--- NOTE | 2019-02-18 09:24 | PN ---
Progress Note for BRIDGET SALVADOR Date: 02/18/2019 Room #: VM.222 SUBJECTIVE: This is a 68-year-old on swing bed, end-of-life cares, was sleeping Saturday when I visited with her . She has been having more constipation. Did get an enema over the weekend, had 2 bowel movements on Saturday and then none charted since. She is wondering about getting up, but she is quite weak. We had her on the commode a couple of weeks ago, but even dangling on the bed would need substantial assistance. She is not having any pain, but is bothered by heartburn now. She did get some IV Reglan yesterday. Otherwise, her cough is not bothering her. She is still receiving the IV Ativan for restlessness and to help with sleep at night. She has not had any significant pain, but did get a dose of Dilaudid last evening, has been using ,1 maybe 2 doses per day. OBJECTIVE: Vital Signs: We are not doing routine vitals. Her oxygen was 94 on 4 L on the . Her oxygen was off today. She states it just comes off, and she would like it to be put back on. Heart: Regular rate and rhythm. Lungs: Lung sounds are clear to auscultation bilaterally. Abdomen: With ascites but nontender. PleurX drain is in place. She had been getting out of less than 500. Report was for 300 yesterday, but I was not able to find that charted. Mental Status: She is alert and orientated x3. Overall, she appears pale. ASSESSMENT AND PLAN: 1. Metastatic endometrial cancer with malignant ascites. 2. Gastroesophageal reflux disease. 3. Constipation. 4. Multiple medical comorbidities like renal failure, severe malnutrition, and anemia. PLAN: At this point, the patient will continue comfort care measures. I will schedule some Prilosec each morning. I will also schedule her Reglan 3 times a day. This should help the constipation too. We will see how things go. Continue comfort and supportive cares. RANJITA: 02/18/2019 08:52:05 MODL: 02/18/2019 09:12:36 /[id number]
[2019-02-18] MEDS: HYDROmorphone 1 MG/ML Syringe IVPUSH PRN (20:03)
[2019-02-18] MEDS: LORazepam 2 MG/ML SDV IVPUSH SCH (20:04)
[2019-02-19] MEDS: Sodium Chloride 0.65% Nasal Spray 45 ML Bottle NAS SCH ×6 (00:20→20:30)
[2019-02-19] MEDS: Sodium Chloride 0.9% 10 ML Syringe IV SCH (07:06)
[2019-02-19] MEDS: Omeprazole 20 MG Cap.CR PO SCH (07:06)
[2019-02-19] MEDS: Levothyroxine 125 MCG Tab PO SCH (07:06)
[2019-02-19] MEDS: hydrOXYzine HCl 25 MG Tab PO SCH ×2 (07:15→21:21)
[2019-02-19] MEDS: Furosemide 40 MG Tab PO SCH (07:15)
[2019-02-19] MEDS: Hydrocortisone 2.5% Crm 30 GM Tube TOP SCH ×2 (07:17→20:35)
[2019-02-19] MEDS: Metoclopramide 10 MG/2 ML SDV IVPUSH SCH ×3 (07:18→21:30)
[2019-02-19] MEDS: LORazepam 2 MG/ML SDV IVPUSH SCH (21:33)
[2019-02-19] MEDS: diphenhydrAMINE 50 MG/ML SDV IVPUSH PRN (21:37)
[2019-02-19] MEDS: Sodium Chloride 0.9% 10 ML Syringe IV PRN (21:40)
[2019-02-19] MEDS: HYDROmorphone 1 MG/ML Syringe IVPUSH PRN (23:50)
[2019-02-20] MEDS: Sodium Chloride 0.65% Nasal Spray 45 ML Bottle NAS SCH ×7 (00:48→23:53)
[2019-02-20] MEDS: Omeprazole 20 MG Cap.CR PO SCH ×2 (05:41→06:00)
[2019-02-20] MEDS: Sodium Chloride 0.9% 10 ML Syringe IV SCH (05:44)
[2019-02-20] MEDS: Levothyroxine 125 MCG Tab PO SCH (06:00)
[2019-02-20] MEDS: hydrOXYzine HCl 25 MG Tab PO SCH ×2 (09:09→20:31)
[2019-02-20] MEDS: Metoclopramide 10 MG/2 ML SDV IVPUSH SCH ×3 (09:09→20:38)
[2019-02-20] MEDS: Hydrocortisone 2.5% Crm 30 GM Tube TOP SCH ×2 (09:09→20:37)
[2019-02-20] MEDS: diphenhydrAMINE 25 MG Cap PO PRN (09:09)
[2019-02-20] MEDS: Furosemide 40 MG Tab PO SCH (09:09)
[2019-02-20] MEDS: Sodium Chloride 0.9% 10 ML Syringe IV PRN ×4 (09:11→20:35)
[2019-02-20] MEDS: HYDROmorphone 1 MG/ML Syringe IVPUSH PRN ×2 (12:49→16:21)
[2019-02-20] MEDS: LORazepam 2 MG/ML SDV IVPUSH PRN ×2 (12:49→16:20)
[2019-02-20] MEDS: Ondansetron 4 MG/2 ML SDV IVPUSH PRN (16:21)
--- NOTE | 2019-02-20 17:22 | PN ---
Progress Note for BRIDGET SALVADOR Date: 02/20/2019 Room #: VM.222 SUBJECTIVE: This is a 68-year-old with metastatic endometrial cancer, on comfort cares. The patient started having severe abdominal pain this morning. She received some hydromorphone. We increased her dose to 1 mg and that seemed to help. She is now resting comfortably. She just had some agonal breathing, but was not very responsive to me when I was talking to her, but did not grimace with pain when I examined her abdomen either. She did have her PleurX catheter in the abdomen during the day for 250 mL. Otherwise, she has been resting comfortably. has noted some changes over the last few days as well and her oral intake has went down to just 10% or worse over the last day. OBJECTIVE: VITAL SIGNS: We are not doing any routine vitals other than she did have 94% on 4 L a few days ago. No fevers. General: She is in no acute distress. She is pale. Heart: Regular rate and rhythm. Lungs: Lung sounds decreased with poor effort. Abdomen: Nondistended, but a masslike structure felt in the mid abdomen. PleurX in the right lower quadrant. No rash. Otherwise abdomen is soft. Again, she did not grimace with pain. Extremities: Warm, but pale in color. Little bruising to that right foot. No edema. Mental Status: She was not alert enough to do orientation questions. ASSESSMENT AND PLAN: 1. Metastatic endometrial cancer, on comfort measures. Discussed with her that her overall condition is worsening and we are taking it day by day. He is going to update his family. 2. Constipation. She had a small stool today. 3. Multiple medical comorbidities including renal failure, severe malnutrition, and anemia. PLAN: At this time, the patient will continue comfort measures. We did increase her Dilaudid and her Ativan. I will continue to follow and adjust meds as needed. RANJITA: 02/20/2019 16:50:10 MODL: 02/20/2019 17:02:49 /[id number]
[2019-02-20] MEDS: LORazepam 2 MG/ML SDV IVPUSH SCH (20:36)
[2019-02-21] MEDS: HYDROmorphone 1 MG/ML Syringe IVPUSH PRN ×3 (01:39→23:57)
[2019-02-21] MEDS: Sodium Chloride 0.9% 10 ML Syringe IV PRN ×5 (01:41→23:57)
[2019-02-21] MEDS: Sodium Chloride 0.65% Nasal Spray 45 ML Bottle NAS SCH ×2 (05:11→09:00)
[2019-02-21] MEDS: Sodium Chloride 0.9% 10 ML Syringe IV SCH (05:37)
[2019-02-21] MEDS: Levothyroxine 125 MCG Tab PO SCH (06:15)
[2019-02-21] MEDS: Omeprazole 20 MG Cap.CR PO SCH (06:15)
[2019-02-21] MEDS: hydrOXYzine HCl 25 MG Tab PO SCH (07:59)
[2019-02-21] MEDS: Furosemide 40 MG Tab PO SCH (07:59)
[2019-02-21] MEDS: Metoclopramide 10 MG/2 ML SDV IVPUSH SCH ×3 (08:59→19:01)
[2019-02-21] MEDS: LORazepam 2 MG/ML SDV IVPUSH PRN (08:59)
[2019-02-21] MEDS: Hydrocortisone 2.5% Crm 30 GM Tube TOP SCH (09:00)
[2019-02-21] MEDS ORDERED: Haloperidol Lactate 5 MG/ML SDV IV PRN (10:54)
--- NOTE | 2019-02-21 11:44 | PN ---
Progress Note for BRIDGET SALVADOR Date: 02/21/2019 Room #: VM.222 SUBJECTIVE: This is a 68-year-old on swing bed for end of life cares with metastatic endometrial cancer. The patient was having more abdominal pain yesterday. Her Dilaudid was increased to 1 mg. She has gotten 3 doses. Her pain is controlled this morning. She is resting comfortably, but she was more restless prior to my rounding picking at things, trying to pull her clothes off, so did get some Ativan. Otherwise, she has not had any noticeable fever, we are not doing any routine vitals. She only ate a few bites of her breakfast. Otherwise, she has been sleeping most of the time. is at bedside. He asked me to update his children. ASSESSMENT AND PLAN: 1. Metastatic endometrial cancer with abdominal ascites. She is not due for another drain until tomorrow. She has not had as much output. We will continue to monitor. 2. Constipation. She did have a small stool yesterday. She does not seem to be in any distress. She has poor intake. I suspect she will continue to have issues with constipation, especially now that she is getting more pain medications. 3. Multiple medical comorbidities including renal failure, severe malnutrition and anemia. PLAN: At this point, the patient is to continue comfort cares. I will go ahead and schedule some Dilaudid 3 times a day just to keep all her pain and symptoms under control. She will continue with Ativan. She will also have some Haldol as needed. I am going ahead and keeping the Reglan scheduled at least for the next 24 hours as she was having quite a bit of heartburn symptoms. The patient will continue comfort cares for end of life. MKA: 02/21/2019 11:12:56 MODL: 02/21/2019 11:34:46 /[id number]
[2019-02-21] MEDS: HYDROmorphone 1 MG/ML Syringe IVPUSH SCH ×2 (12:05→19:01)
[2019-02-21] MEDS ORDERED: Hydrocortisone 2.5% Crm 30 GM Tube TOP PRN (15:49)
[2019-02-21] MEDS: LORazepam 2 MG/ML SDV IVPUSH SCH (19:01)
[2019-02-22] MEDS: HYDROmorphone 1 MG/ML Syringe IVPUSH SCH ×3 (05:26→19:00)
[2019-02-22] MEDS: HYDROmorphone 1 MG/ML Syringe IVPUSH PRN (05:47)
[2019-02-22] MEDS: Sodium Chloride 0.9% 10 ML Syringe IV SCH (05:48)
[2019-02-22] MEDS: Metoclopramide 10 MG/2 ML SDV IVPUSH SCH ×3 (07:50→19:00)
[2019-02-22] MEDS: LORazepam 2 MG/ML SDV IVPUSH PRN (07:51)
[2019-02-22] MEDS: Sodium Chloride 0.9% 10 ML Syringe IV PRN ×3 (07:51→19:00)
[2019-02-22] MEDS: LORazepam 2 MG/ML SDV IVPUSH SCH (19:00)
--- NOTE | 2019-02-22 21:16 | PCM.SN ---
- Free Text/Narrative Note: 68 yo seen today with her . Is less alert today and hasn't eaten anything since 2 bites yesterday for breakfast. Not doing the slower respirations and apnea this AM like we witnessed Fridays. Shakes her head to answer a few questions and answers were appropriate. Denies pain. Hasn't required Haldol. Getting Ativan and Dilaudid. I will decrease IV reglan to taper off. Symptoms controlled continue comfort measures.
[2019-02-23] MEDS ORDERED: Metoclopramide 10 MG/2 ML SDV IVPUSH SCH (08:00)
== END 2019-02-22 23:35 | disposition expired | DRG 754 ==
LOC: VM.MS 14:00
PROVIDERS: ADMIT Internal Medicine; ATTEND Internal Medicine
DX: C54.1 Malignant neoplasm of endometrium (principal); K65.2 Spontaneous bacterial peritonitis; E43 Unspecified severe protein-calorie malnutrition; N17.9 Acute kidney failure, unspecified; R18.0 Malignant ascites; K56.49 Other impaction of intestine; N39.0 Urinary tract infection, site not specified; Z51.5 Encounter for palliative care; E86.0 Dehydration; D72.829 Elevated white blood cell count, unspecified; D64.81 Anemia due to antineoplastic chemotherapy; D63.0 Anemia in neoplastic disease; T45.1X5A Adverse effect of antineoplastic and immunosuppressive drugs, initial encounter; R05 Cough; I12.9 Hypertensive chronic kidney disease with stage 1 through stage 4 chronic kidney disease, or unspecified chronic kidney disease; N18.9 Chronic kidney disease, unspecified; I10 Essential (primary) hypertension; S90.31XA Contusion of right foot, initial encounter; W19.XXXA Unspecified fall, initial encounter; K59.00 Constipation, unspecified; K21.9 Gastro-esophageal reflux disease without esophagitis; R33.9 Retention of urine, unspecified; E86.9 Volume depletion, unspecified; E83.42 Hypomagnesemia; Z86.718 Personal history of other venous thrombosis and embolism; Z86.711 Personal history of pulmonary embolism; Z79.890 Hormone replacement therapy; Z79.01 Long term (current) use of anticoagulants
CPT/HCPCS: 36415; 51702; 71045; 80053; 81001; 83735; 85025; 87086; 94760; 97110-GP; 97162-GP; 97530-GP; A9270-GY; J0744; J1170; J1200; J1642; J1940; J2060; J2405; J2765